=== PATIENT | female | born 1935 | race Caucasian/White ===

== ENCOUNTER → 2016-06-23 | Outpatient (CLI) | payer MEDICARE, OTHER | LOC: GMAL 10:51 | PROVIDERS: ATTEND Family Medicine | DX: D51.3 Other dietary vitamin B12 deficiency anemia (principal); E83.42 Hypomagnesemia; I10 Essential (primary) hypertension ==

== ENCOUNTER → 2016-08-17 | Outpatient (CLI) | payer MEDICARE, OTHER | END | disposition home or self-care (01) | LOC: GMAL 10:29 | PROVIDERS: ATTEND Family Medicine | DX: E83.42 Hypomagnesemia (principal) ==

== ENCOUNTER → 2017-02-04 | Outpatient (CLI) | payer MEDICARE, OTHER ==
--- NOTE | 2017-02-05 13:51 | MAM ---
EXAM DESCRIPTION: 3D Screening BILATERAL CLINICAL HISTORY: 81 yearsFemaleSCREENING. No complaints. No family history of breast cancer. Postmenopausal. HRT five or more years ago. Benign left breast biopsy. COMPARISON: 2-D digital screening bilateral study 10/21/2015. No prior reports available. TECHNIQUE: Bilateral CC and MLO projection full-field images, 3-D tomosynthesis digital mammographic technique. Also bilateral synthesized CC/ MLO full-field images. CAD not utilized. FINDINGS: The breast parenchymal density pattern is: Almost entirely fatty. No skin thickening or nipple retraction bilateral intramammary lymph nodes. Bilateral solitary microcalcifications. Bilateral vascular calcifications. Oval-shaped mass density versus focal asymmetry in the anterior third of the upper outer quadrant of the right breast at the 1130 clock position, within 2 cm of the skin surface. Not well seen on the prior study. Partially well-circumscribed margins. Not associated with calcifications. No focal, stellate mass or density, focal asymmetry , and no suspicious microcalcifications in the left breast. IMPRESSION: BI-RADS CATEGORY: 0 - INCOMPLETE- Need additional imaging evaluation. FOLLOW-UP: Recall for additional imaging: Targeted right breast ultrasound of the region of interest described in the findings.. Written communication explaining the results and follow-up will be mailed to the patient and referring care provider. Electronically signed by: Yovany Delgado MD 02/05/2017 1:50 PM CDT
== END | disposition home or self-care (01) ==
LOC: MAMMO 10:38
PROVIDERS: ATTEND Family Medicine
DX: Z12.31 Encounter for screening mammogram for malignant neoplasm of breast (principal)
CPT/HCPCS: 77063; G0202

== ENCOUNTER → 2017-02-16 | Outpatient (CLI) | payer MEDICARE, OTHER | END | disposition home or self-care (01) | LOC: GMAL 11:21 | PROVIDERS: ATTEND Family Medicine | DX: D51.3 Other dietary vitamin B12 deficiency anemia (principal); E55.9 Vitamin D deficiency, unspecified ==

== ENCOUNTER → 2017-02-17 | Outpatient (CLI) | payer MEDICARE, OTHER ==
--- NOTE | 2017-02-17 17:25 | US ---
EXAM DESCRIPTION: Breast,Right ultrasound. CLINICAL HISTORY: 81 yearsFemaleABNORMAL RIGHT BREAST MAMMO COMPARISON: Digital 3-D tomosynthesis bilateral breasts 02/05/2017. TECHNIQUE: Transcutaneous scanning of the upper outer quadrant of the right breast utilizing two-dimensional and Doppler modes. Scanning performed by the oven unloader only. FINDINGS: At 1100 clock position of the right breast near the skin surface and 5 cm from the nipple, is a oval-shaped solid mass with heterogeneous signal and almost completely well-circumscribed, and minimally indistinct margins. Dimensions are 8.6 x 6.6 mm. Parallel orientation and nonvascular. Attenuating posterior features at the margins in each scan plane. No associated microcalcifications. No other distinct solid masses or cysts. No parenchymal edema or calcifications. IMPRESSION: BI-RADS CATEGORY: 3 PROBABLY BENIGN. Management: Short interval (6-month) follow-up or continued surveillance. Written documentation in regards to the IMPRESSION and follow-up plan will be mailed to the patient and referring health care provider. Electronically signed by: Yovany Delgado MD 02/17/2017 5:24 PM CDT
== END | disposition home or self-care (01) ==
LOC: US 14:40
PROVIDERS: ATTEND Family Medicine
DX: R92.8 Other abnormal and inconclusive findings on diagnostic imaging of breast (principal)

== ENCOUNTER → 2017-08-17 | Outpatient (CLI) | payer MEDICARE, OTHER | LOC: GMAL 12:30 | PROVIDERS: ATTEND Family Medicine | DX: E55.9 Vitamin D deficiency, unspecified (principal) ==

== ENCOUNTER → 2017-09-20 | Outpatient (CLI) | payer MEDICARE, OTHER ==
--- NOTE | 2017-09-21 14:49 | US ---
EXAM DESCRIPTION: Breast,Right: Ultrasound CLINICAL HISTORY: 82 yearsFemale6 MO FU COMPARISON: Digital diagnostic 3-D tomosynthesis bilateral breast on this visit. . Targeted right breast ultrasound 02/17/2017. TECHNIQUE: Transcutaneous scanning of the upper right breast utilizing two-dimensional and Doppler modes. Scanning performed by the manager ambulatory and Dr. Delgado. FINDINGS: Scanning 1100 clock position 5 cm from the nipple. Again noted is a oval-shaped homogeneous hypoechoic mass measuring 8.1 x 6.3 mm just below the skin surface. Parallel orientation with posterior acoustic shadowing as was seen previously. Nonvascular. Closer to the nipple at 2 cm is a anechoic cyst measuring 5.6 mm parallel orientation and posterior acoustic enhancement and nonvascular. No other distinct solid masses or cysts. No parenchymal edema or large calcifications. No skin thickening. No abnormal vascularity of the soft tissues. IMPRESSION: WS BI-RADS 3-probably benign. Please refer to bilateral diagnostic 3-D tomosynthesis mammographic examination and report on this visit. The FINDINGS and the FOLLOW-UP plan were reviewed in person with the patient after the examination. Written communication explaining the IMPRESSION and FOLLOW-UP will be mailed to the patient and referring care provider. Electronically signed by: Yovany Delgado MD 09/21/2017 2:48 PM CDT
--- NOTE | 2017-09-21 14:49 | MAM ---
EXAM DESCRIPTION: 3D Diagnostic, Bilateral: Digital Mammography CLINICAL HISTORY: 82 yearsFemaleABNORMAL MAMMOGRAM follow-up mass right breast.. COMPARISON: prior. No prior reports available. Reports from prior examinations also reviewed. Report from prior examination also reviewed. TECHNIQUE: Right CC LM MLO projection full-field images, 3-D tomosynthesis digital mammographic technique. Also right breast synthesized CC MLO LM full-field images. Left breast LM full-field 3-D Maame synthesis and CC images. CAD not utilized. FINDINGS: The breast parenchymal density pattern is: Almost entirely fatty. No skin thickening or nipple retraction *or calcifications. Scattered solitary microcalcifications and coarse calcifications. Posterior right breast intramammary lymph node. Skin mole abutting the chest wall. No focal, stellate mass or density, focal asymmetry , and no suspicious microcalcifications right breast. ULTRASOUND: Scanning 1100 clock position 5 cm from the nipple. Again noted is a oval-shaped homogeneous hypoechoic mass measuring 8.1 x 6.3 mm just below the skin surface. Parallel orientation with posterior acoustic shadowing as was seen previously. Nonvascular. Closer to the nipple at 2 cm is a anechoic cyst measuring 5.6 mm parallel orientation and posterior acoustic enhancement and nonvascular. No other distinct solid masses or cysts. No parenchymal edema or large calcifications. No skin thickening. No abnormal vascularity of the soft tissues. IMPRESSION: BI-RADS CATEGORY: 3 - PROBABLY BENIGN. Management: Short interval follow-up: right breast ultrasound and bilateral diagnostic digital mammography January 2018. The FINDINGS and the FOLLOW-UP plan were reviewed in person with the patient after the examination. Written communication explaining the IMPRESSION and FOLLOW-UP will be mailed to the patient and referring care provider. Electronically signed by: Yovany Delgado MD 09/21/2017 2:47 PM CDT
== END ==
LOC: MAMMO 12:49
PROVIDERS: ATTEND Obstetrics & Gynecology
DX: R92.8 Other abnormal and inconclusive findings on diagnostic imaging of breast (principal)
CPT/HCPCS: 76641; 77066; G0279

== ENCOUNTER 2018-03-29 17:45 | Inpatient (IN) | payer MEDICARE, OTHER ==
--- NOTE | 2018-03-29 17:47 | HP ---
SUPERVISING PHYSICIAN: Rowdy Batres M.D. CHIEF COMPLAINT: Pneumonia symptoms. HISTORY OF PRESENT ILLNESS: This is an 82 year-old female patient who was seen on the 24 of March by nurse practitioner, Asia Deal, at [facility] for cold symptoms. At that time she had an x-ray done and it showed some basilar atelectasis. She was treated with Depo-Medrol, Rocephin and breathing treatments as well as given some azithromycin. She was also given some Guaifenesin. She returned on March 29 with continuing with the same symptoms. Her repeat x-ray showed abnormal lung bases partially on the left with marked eventration of the left hemidiaphragm with compressive atelectasis and/or mild inflammation at the left lung base. She had a very productive cough with some shortness of breath and wheezing. Asia talked with the patient's primary care physician, Dr. Addison Salgado. They both felt that she should be admitted for left lower lobe pneumonia failed outpatient treatment. She was sent to the hospital as a direct admission. PAST MEDICAL HISTORY: 1. Asthma. 2. Gout. 3. Hypertension. 4. Chronic hypokalemia. 5. Chronic hypomagnesemia. 6. Chronic lymphocytic leukemia. 7. Osteoarthritis. 8. Chronic renal insufficiency with multiple kidney stones. PAST SURGICAL HISTORY: 1. Bladder suspension. 2. Cataract removal. 3. Hysterectomy. 4. Kidney stone removal. 5. Radical hemorrhoidectomy. 6. Biopsy of the left breast. 7. Cornea transplant. OUTPATIENT MEDICATIONS: 1. Dorzolamide/Timolol ophthalmic drops. 2. Fluticasone inhaler. 3. Latanoprost ophthalmic. 4. Metoprolol tartrate. 5. Omeprazole. 6. Pravastatin. 7. Triamterene/Hydrochlorothiazide. ALLERGIES: ALLOPURINOL, CODEINE, COLCHICINE, NORVASC, CELEBREX, COREG, COZAAR, LISINOPRIL, NOVOCAINE. SOCIAL HISTORY: She is . She has 2 children. She denies any tobacco, ETOH or illicit drug use. REVIEW OF SYSTEMS: GENERAL: Positive for fatigue. Negative for chills or fever. HEENT: Negative for ear pain, vision changes, sore throat or sinus symptoms. RESPIRATORY: Positive for coughing, wheezing, shortness of breath. CARDIAC: Negative for chest pain, palpitations or tachycardia. GASTROINTESTINAL: Positive for some mild diarrhea and some nausea. Negative for vomiting, constipation or abdominal pain. MUSCULOSKELETAL: Negative for arthralgias or myalgias. GENITOURINARY: Negative for hematuria, dysuria or polyuria. SKIN: Negative for lesions or rashes. NEUROLOGIC: Negative for headaches, dizziness or seizures. PHYSICAL EXAMINATION: VITAL SIGNS: Temperature: She is afebrile. Heart rate 56, blood pressure 135/ 82, respiratory rate 22, O2 sat 94%. GENERAL: This is an 82 year-old female patient who is sitting on the side of her hospital bed. She appears to be moderately ill. HEENT: Normocephalic and atraumatic. Pupils are equal and reactive. Oropharynx is clear. NECK: Supple without mass. RESPIRATORY: She is slightly tachypneic. She has some diffuse expiratory wheezes throughout, especially over the left and right lower lobes. CARDIOVASCULAR: Regular rate and rhythm. GASTROINTESTINAL: Abdomen is soft, nondistended, non-tender. Bowel sounds are positive. EXTREMITIES: No cyanosis, clubbing or edema. SKIN: Warm and dry. NEUROLOGIC: She is awake, alert and oriented times three. LABORATORY: Labs done at [facility]. WBCs 18,100 with hemoglobin 15.6, hematocrit 44. Lymphocytes 73%, neutrophils 22.6%. Electrolytes are basically within normal limits with the exception of her sodium is slightly low at 133. Liver enzymes are within normal limits. X-rays are as the History of Present Illness. ASSESSMENT: 1. Left lower lobe pneumonia most likely community acquired, failed outpatient therapy. 2. Leukocytosis secondary to #1. Her WBCs are 18,100. 3. Mild hyponatremia. 4. History of chronic lymphocytic leukemia. 5. History of asthma. 6. Hypertension that is stable. 7. History of chronic hypokalemia and hypomagnesemia. 8. Gout. PLAN: We will admit the patient to the hospital. I have initiated the pneumonia guidelines. I have given her Protonix for ulcer prophylaxis and Lovenox for DVT prophylaxis. We will encourage good pulmonary hygiene, especially those from the pneumonia guidelines. Her home medications have been restarted. I have also got blood cultures and sputum culture as well as a urinalysis. I have started her on azithromycin and Rocephin. I have ordered routine lab for in the morning, including magnesium due to her history of electrolyte imbalance. We will continue to monitor the patient closely and follow as needed. [facility][id number] [facility]
[2018-03-29] MEDS ORDERED: ACETAMINOPHEN 325 MG TAB PO PRN (18:32)
[2018-03-29] MEDS ORDERED: SODIUM CHLORIDE 0.9% (FLUSH) 10 ML SYG IV PRN (18:32)
[2018-03-29] MEDS ORDERED: ALBUTEROL SULFATE 2.5 MG/3 ML VIAL NEB PRN (18:32)
[2018-03-29] MEDS ORDERED: ONDANSETRON INJ 4 MG/2 ML VIAL IV PRN (18:32)
[2018-03-29] MEDS ORDERED: KCL 20 MEQ/NS 1,000 ML IVS ONE (18:36)
[2018-03-29] MEDS ORDERED: IV SET AND CAP CHANGE INJ INJ SCH (19:00)
[2018-03-29] MEDS ORDERED: SODIUM CHL 0.9% 50ML MIN-BAG+ 50 ML IVPB ONE (20:10)
[2018-03-29] MEDS ORDERED: cefTRIAXone SODIUM 1 GM VIAL ONE (20:11)
[2018-03-29] MEDS: cefTRIAXone SODIUM 1 GM in SODIUM CHL 0.9% 50ML MIN-BAG+ 50 ML IVPB SCH (20:19)
[2018-03-29] MEDS ORDERED: SODIUM CHLORIDE 0.9% 250ML 250 ML ONE (20:40)
[2018-03-29] MEDS ORDERED: AZITHROMYCIN IV 500 MG VIAL IVPB ONE (20:40)
[2018-03-29] MEDS: ALBUTEROL SULFATE 2.5 MG/3 ML VIAL NEB SCH (20:47)
[2018-03-29] MEDS: AZITHROMYCIN IV 500 MG in SODIUM CHLORIDE 0.9% 250ML 250 ML IVPB SCH (21:25)
[2018-03-29] MEDS: guaiFENesin ER TAB 600 MG TAB PO SCH (21:26)
[2018-03-29] MEDS: ENOXAPARIN SODIUM 40 MG/0.4 ML SYG SUBCU SCH (21:26)
[2018-03-29] MEDS: SODIUM CHLORIDE 0.9% (FLUSH) 10 ML SYG IV SCH (21:27)
[2018-03-30] MEDS: PANTOPRAZOLE SODIUM IV 40 MG VIAL IV SCH (06:04)
--- NOTE | 2018-03-30 07:17 | RAD ---
Examination: XR CHEST 2 VIEWS dated 03/30/2018 7:00 AM CDT History: Pneumonia Comparison: None Technique: 2 views of the chest Findings: Elevated left hemidiaphragm with left lung base opacities. Right lung is clear. No pneumothorax or pleural effusion. Aortic atherosclerosis. Normal cardiac silhouette. Impression: Elevated left hemidiaphragm with left lung base opacities, likely representing atelectasis. Pneumonia is difficult to exclude. Electronically signed by: Bk Aviles MD 03/30/2018 7:15 AM CDT
[2018-03-30] MEDS ORDERED: POTASSIUM CHLORIDE 20 MEQ TAB PO ONE (08:11)
[2018-03-30] MEDS: ALBUTEROL SULFATE 2.5 MG/3 ML VIAL NEB SCH ×4 (08:26→20:05)
[2018-03-30] MEDS ORDERED: OMEPRAZOLE CAP 20 MG CAP PO SCH (09:00)
[2018-03-30] MEDS ORDERED: NON-FORMULARY MEDICATION 1 EA MIS (Omeprazole [Omeprazole] 20 MG) PO SCH (09:00)
[2018-03-30] MEDS ORDERED: NON-FORMULARY MEDICATION 1 EA MIS (Pravastatin Sodium [Pravachol] 40 MG) PO SCH (09:00)
[2018-03-30] MEDS ORDERED: FLUTICASONE PROPIONATE INH SCH ×2 (09:00→10:00)
[2018-03-30] MEDS ORDERED: DORZOLAMIDE TIMOLOL RIGHT_EYE SCH (09:00)
[2018-03-30] MEDS: PRAVASTATIN SODIUM 20 MG TAB PO SCH (09:12)
[2018-03-30] MEDS: guaiFENesin ER TAB 600 MG TAB PO SCH ×2 (09:12→21:06)
[2018-03-30] MEDS: METOPROLOL TARTRATE 50 MG TAB PO SCH (09:13)
[2018-03-30] MEDS: SODIUM CHLORIDE 0.9% (FLUSH) 10 ML SYG IV SCH ×2 (09:13→21:06)
[2018-03-30] MEDS: NON-FORMULARY MEDICATION 1 EA MIS (Triamterene & Hydrochlorothiaz [Triamterene/Hydrochloro PO SCH (10:46)
[2018-03-30] MEDS ORDERED: MAGNESIUM SULFATE PREMIX 4GM 4 GM in PREMIX BAG 1 BAG IVPB ONE (12:34)
[2018-03-30] MEDS ORDERED: MAGNESIUM SULFATE PREMIX 4GM 50 ML IVPB ONE (13:05)
[2018-03-30] MEDS ORDERED: SODIUM CHL 0.9% 50ML MIN-BAG+ 50 ML IVPB ONE (17:08)
[2018-03-30] MEDS ORDERED: cefTRIAXone SODIUM 1 GM VIAL ONE (17:09)
[2018-03-30] MEDS: NON-FORMULARY MEDICATION 1 EA MIS (Latanoprost 0.005% Ophth [Xalatan 0.005% Ophthalmic Dro RIGHT_EYE SCH ×2 (17:43→22:42)
[2018-03-30] MEDS: cefTRIAXone SODIUM 1 GM in SODIUM CHL 0.9% 50ML MIN-BAG+ 50 ML IVPB SCH (17:44)
[2018-03-30] MEDS ORDERED: AZITHROMYCIN IV 500 MG VIAL IVPB ONE (19:42)
[2018-03-30] MEDS ORDERED: SODIUM CHLORIDE 0.9% 250ML 250 ML ONE (19:42)
[2018-03-30] MEDS: AZITHROMYCIN IV 500 MG in SODIUM CHLORIDE 0.9% 250ML 250 ML IVPB SCH (19:53)
[2018-03-30] MEDS: ENOXAPARIN SODIUM 40 MG/0.4 ML SYG SUBCU SCH (21:06)
--- NOTE | 2018-03-30 23:34 | PN ---
DATE: 03/30/18 SUPERVISING PHYSICIAN: Rowdy Batres M.D. SUBJECTIVE: The patient is walking around in her room. She states she feels much better than she did yesterday. She continues to cough quite a bit but she is getting something up. Complains of some mild shortness of breath with exertion but she denies wheezing, chest pain, nausea, vomiting, diarrhea or constipation. OBJECTIVE: VITAL SIGNS: Temperature 97.7, heart rate 69, blood pressure 132/81 , respiratory rate 18, O2 sat 95% on room air. RESPIRATORY: Essentially clear to auscultation bilaterally. She is somewhat diminished at the bases but much improved since yesterday. CARDIAC: Regular rate and rhythm. GASTROINTESTINAL: Abdomen soft, nondistended, non-tender. Bowel sounds are positive. EXTREMITIES: No cyanosis, clubbing or edema. NEUROLOGIC: She is awake, alert and oriented times three. LABORATORY: Her WBCs have normalized to 8.8 with hemoglobin 13.6, hematocrit 40.6, neutrophils 26.9%. Sodium 136, potassium 3.5, chloride 101, carbon dioxide 25, BUN 18, creatinine 0.94, magnesium 1.5. Serum total protein is low at 6.0. Other liver enzymes are within normal limits. Urine is basically negative except there is a trace of urine leukocyte esterase and 5 to 10 urine WBCs. Preliminary blood cultures show negative to date. Sputum culture is pending. Gram stain on sputum is pending. Chest x-ray shows elevated left hemidiaphragms with left lung base opacities likely representing atelectasis. Pneumonia is difficult to exclude. All other labs and films have been reviewed via the EMR. ASSESSMENT: 1. Left lower lobe pneumonia, community acquired, failed outpatient therapy. 2. Leukocytosis secondary to #1. At admission it was 18,100, today it is 8, 800. 3. Mild hyponatremia, now stable. 4. History of chronic lymphocytic leukemia. 5. History of asthma. 6. Hypertension, stable. 7. History of chronic hypokalemia and hypomagnesemia. Potassium today was 3.5 and magnesium was 1.5. 8. Gout. PLAN: We will continue present supportive care. She will continue with her aggressive pulmonary hygiene per the pneumonia guidelines as well as the antibiotics. We will continue to monitor her electrolytes as well as her cultures. I have given her potassium replacement as well as magnesium replacement. I will recheck those in the morning. Will also do a chest x-ray in the morning. Hopefully she can be discharged tomorrow or the next day. We will continue to monitor closely and follow as needed. #[id number] [facility]
[2018-03-31 02:39] VITALS: TEMP 98
[2018-03-31] MEDS: PANTOPRAZOLE SODIUM IV 40 MG VIAL IV SCH (06:04)
--- NOTE | 2018-03-31 07:11 | RAD ---
EXAM DESCRIPTION: Chest,2 Views CLINICAL HISTORY: pna COMPARISON: 03/30/2018. FINDINGS: Two views of the chest are submitted. Cardiac silhouette appears normal. Consolidation is improving at the left lung base. There is again elevation of the left hemidiaphragm. Right lung is clear. : IMPRESSION: Improved left lung consolidation. Electronically signed by: Yovany Jean-Baptiste 03/31/2018 7:10 AM CDT
[2018-03-31] MEDS: ALBUTEROL SULFATE 2.5 MG/3 ML VIAL NEB SCH (07:55)
[2018-03-31 07:57] VITALS: O2SAT 95
[2018-03-31] MEDS ORDERED: FLUTICASONE PROPIONATE INH SCH (08:00)
[2018-03-31] MEDS ORDERED: DORZOLAMIDE 2% OPHTH SOL 1 DROP RIGHT_EYE SCH (09:00)
[2018-03-31] MEDS ORDERED: DORZOLAMIDE 2% RIGHT_EYE SCH (09:00)
[2018-03-31] MEDS: METOPROLOL TARTRATE 50 MG TAB PO SCH (09:30)
[2018-03-31] MEDS: PRAVASTATIN SODIUM 20 MG TAB PO SCH (09:30)
[2018-03-31] MEDS: NON-FORMULARY MEDICATION 1 EA MIS (Triamterene & Hydrochlorothiaz [Triamterene/Hydrochloro PO SCH (09:30)
[2018-03-31] MEDS: guaiFENesin ER TAB 600 MG TAB PO SCH (09:30)
[2018-03-31 09:47] VITALS: BP 131/84
--- NOTE | 2018-03-31 11:19 | DS ---
SUPERVISING PHYSICIAN: Geronimo Batres MD DISCHARGE DIAGNOSIS: 1. Left lower lobe pneumonia, community acquired, failed outpatient therapy. 2. Leukocytosis secondary to #1. At admission it was 18,100, today it is 9, 800. 3. Mild hyponatremia, now stable. 4. History of chronic lymphocytic leukemia. 5. History of asthma. 6. Hypertension, stable. 7. History of chronic hypokalemia and hypomagnesemia. Potassium today is 3.7 and magnesium yesterday was 1.5. She was given supplementation and today it is 1.9. 8. Gout. HISTORY OF PRESENT ILLNESS: This is an 82-year-old female patient who was seen on 03/24/18 by nurse practitioner, Asia Odell, at [facility] for cold symptoms. At that time, she had an x-ray done and it showed some basilar atelectasis. She was treated with Depo-Medrol, Rocephin and breathing treatments as well as given some azithromycin. She was also given some guaifenesin. She returned on 03/29/18 with worsening symptoms. Her repeat x-ray showed abnormal lung bases partially on the left with marked eventration of the left hemidiaphragm with compressive atelectasis and/or mild inflammation at the left lung base. She had a very productive cough with some shortness of breath and wheezing. She was also very weak. Asia talked with the patient's primary care physician, Dr. Addison Salgado. They both felt that she should be admitted with left lower lobe pneumonia failed outpatient treatment. At [facility], her white blood cell count was 18,100. She was mildly hyponatremia. Other than that, her lab was within normal limits. HOSPITAL COURSE: She was placed on the pneumonia guidelines and given aggressive pulmonary hygiene. Her chest x-ray after one day in the hospital showed elevated left hemidiaphragm with left lung base opacities, likely representing atelectasis. Pneumonia is difficult to exclude. Her chest x-ray today showed improved left lung consolidation. She participated with her aggressive pulmonary hygiene. Today, she is stable and will be discharged home in stable condition. DISCHARGE PLAN: The patient will be discharged home in stable condition. She is to increase her activity as tolerated and resume her previous diet as well as her previous medications. She has a followup with Dr. Salgado on 04/05/18 at 10:45 AM. I have also given her three additional doses of azithromycin as well as eight days of cefdinir. She is also to continue with her albuterol breathing treatments 3 to 4 times a day and as needed for coughing, wheezing or shortness of breath. She is also to continue with her guaifenesin 600 mg twice daily. She is to return to the hospital or call Dr. Salgado' office for any problems or complications. DISCHARGE MEDICATIONS: 1. Triamterene/hydrochlorothiazide. 2. Pravastatin. 3. Latanoprost ophthalmic. 4. Dorzolamide/timolol ophthalmic. 5. Omeprazole. 6. Metoprolol. 7. Flovent. 8. Proventil. 9. Azithromycin. 10. Cefdinir. 11. Guaifenesin. [facility][id number] [facility]
== END 2018-03-31 11:00 | disposition home or self-care (01) | DRG 194 ==
LOC: MS 17:45
PROVIDERS: ADMIT Nurse Practitioner Acute Care; ATTEND Nurse Practitioner Acute Care
DX: J18.9 Pneumonia, unspecified organism (principal); E87.1 Hypo-osmolality and hyponatremia; J45.909 Unspecified asthma, uncomplicated; I10 Essential (primary) hypertension; E87.6 Hypokalemia; E83.42 Hypomagnesemia; M10.9 Gout, unspecified; Z85.6 Personal history of leukemia

== ENCOUNTER → 2018-08-17 | Outpatient (CLI) | payer MEDICARE, OTHER | LOC: GMAL 13:07 | PROVIDERS: ATTEND Family Medicine | DX: E83.42 Hypomagnesemia (principal) ==

== ENCOUNTER → 2019-10-09 | Outpatient (CLI) | payer MEDICARE, OTHER | LOC: GMAM 11:21 | PROVIDERS: ATTEND Family Medicine | DX: I48.4 Atypical atrial flutter (principal); R53.83 Other fatigue ==

== ENCOUNTER 2020-01-21 17:35 | Emergency (ER) | payer MEDICARE, OTHER ==
[2020-01-21] MEDS ORDERED: ACETAMINOPHEN IV 1000MG 1,000 MG in PREMIX BOTTLE 1 BOTTLE IVPB ONE (17:48)
[2020-01-21] MEDS ORDERED: GABAPENTIN 100 MG CAP PO ONE (17:49)
[2020-01-21 17:58] VITALS: TEMP 97.5
--- NOTE | 2020-01-21 18:01 | ED.PDOC ---
History of Present Illness - General Chief Complaint: General Stated Complaint: RLE pain (non trauma) Time Seen by Provider: 01/21/20 17:47 - History of Present Illness Initial Comments: Lidia 84 yo F with a PMH of CLL, HTN, afib comes in with sharp right leg pain. Pain started yesterday radiated down her right leg. The pain went away. The pain came back today and is more severe. started when she was walking to the bathroom. Denies numbness. pain worse with movement. no issues with urine or bladder. no numbness, denies acute back pain. Does have chronic back pain. Is on Eliquis. Denies any injuries. States its the entire leg. no recent travel, no hx of blood clots, no recent immobility. Allergies/Adverse Reactions: Allergies Colchicine Allergy (Severe, Verified 03/29/18 20:29) Codeine Allergy (Intermediate, Verified 03/29/18 20:29) Home Medications: Ambulatory Orders Dorzolamide-Timolol Ophth [Cosopt Opthalmic Drops] 1 drop RIGHT_EYE DAILY 12/02/13 Latanoprost 0.005% Ophth [Xalatan 0.005% Ophthalmic Drops] 1 drop RIGHT_EYE QPM 12/02/13 Pravastatin Sodium [Pravachol] 40 mg PO QAM 12/02/13 Triamterene & Hydrochlorothiaz [Triamterene/Hydrochloroth 75-50 mg] 1 tab PO QAM 12/02/13 Fluticasone Propionate Inhaler [Flovent 110 MCG Inhaler] 2 puff INH DAILY 03/29/18 Metoprolol Tartrate 50 mg PO DAILY 03/29/18 Omeprazole 20 mg PO DAILY 03/29/18 Albuterol Sulfate Nebs [Proventil Nebs] 2.5 mg NEB RTQ4 PRN vial 03/31/18 Albuterol Sulfate Nebs [Proventil Nebs] 2.5 mg NEB RTQID vial 03/31/18 Azithromycin Tab [Zithromax] 250 mg PO DAILY #3 tab 03/31/18 Cefdinir 300 mg PO BID #16 capsule 03/31/18 Guaifenesin [Guaifenesin ER] 600 mg PO BID #60 tab 03/31/18 Gabapentin 100 mg PO TID #30 cap 01/21/20 Review of Systems - Review of Systems Constitutional: Denies: diaphoresis, fever, malaise EENTM: Denies: eye pain, ear discharge, mouth pain Respiratory: Denies: cough, orthopnea, short of breath, stridor Cardiology: Denies: chest pain, edema, palpitations, syncope Gastrointestinal/Abdominal: Denies: abdominal pain, constipation, diarrhea, nausea, vomiting Genitourinary: Denies: discharge, dysuria, frequency, hematuria Musculoskeletal: States: see HPI. Denies: back pain, joint pain, joint swelling, muscle stiffness Skin: Denies: dryness, rash Neurological: Denies: headache, numbness, paresthesia, seizure, tingling, tremors, weakness Endocrine: Denies: increased urine, unexplained weight gain, unexplained weight loss Hematologic/Lymphatic: Denies: anemia, blood clots, easy bleeding, easy bruising Past Medical History (General) - Patient Medical History Hx Seizures: No Hx Stroke: No Hx Dementia: No Hx Asthma: Yes Hx of COPD: No Hx Cardiac Disorders: Yes - A fib Hx Congestive Heart Failure: No Hx Pacemaker: No Hx Hypertension: Yes Hx Thyroid Disease: Yes - thyroidectomy Hx Diabetes: No Hx Gastroesophageal Reflux: No Hx Renal Disease: Yes - Stage 3 kidney disease Hx Cancer: Yes - Chronic Lymphocytic Leukemia Hx of HIV: No Hx MRSA: No MRSA Source:: Wound Surgical History: Hysterectomy - Vaccination History Hx Influenza Vaccination: Yes Hx Pneumococcal Vaccination: Yes - Social History Hx Tobacco Use: No Hx Alcohol Use: No Hx Substance Use: No Hx Substance Use Treatment: No Hx Depression: No Hx Physical Abuse: No Hx Emotional Abuse: No - Female History Patient is a Female of Child Bearing Age (10 -59 yrs old): No Patient : No Family Medical History - Family History Mother Family History: Unknown Name: Ritu Mason Living Status: Age at (years of age): 86 Cause of : heart issues (CHF) Hx Family Asthma: No Hx Family Congestive Heart Failure: Yes Hx Family Hypertension: No Hx Family Stroke: No Hx Family Diabetes: No Hx Family Cancer: No Physical Exam - Physical Exam General Appearance: Alert, Comfortable, No apparent distress Eye Exam: bilateral normal Ears, Nose, Throat: hearing grossly normal, normal ENT inspection Neck: non-tender, full range of motion, supple, normal inspection Respiratory: chest non-tender, lungs clear, normal breath sounds, no respiratory distress, no accessory muscle use Cardiovascular/Chest: normal peripheral pulses, no edema, no gallop, no JVD, no murmur, irregularly irregular Peripheral Pulses: radial,right: 2+, radial,left: 2+, dorsalis pedis,right: 2+, dorsalis pedis,left: 2+, posterior tibialis,right: 2+, posterior tibialis,left: 2+ Gastrointestinal/Abdominal: normal bowel sounds, non tender, soft, no organomegaly, no pulsatile mass Rectal Exam: deferred Back Exam: normal inspection, no CVA tenderness, no vertebral tenderness Extremity: normal range of motion, non-tender, normal inspection, no pedal edema, no calf tenderness, normal capillary refill, other - pain on back of right leg with straight leg test, no pain in back 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 On elqius low probability she would get a blood clot will order d-dimer. good pulses and good blood flow through out. D- dimer negative. Patient given 1000 mg IV tylenol and 100 mg gabapentin. wbc consistent with patients CLL, last wbc was 22.[address] l-spine There is fairly marked scoliosis in the lumbar spine convex left. 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 There are degenerative changes throughout the lumbar spine without significant spinal stenosis. There is severe right neural foraminal stenosis at L1-2 and L2-3. There is moderate to severe neural foraminal stenosis on the left at L4-5. There is severe bilateral neural foraminal stenosis at L5-S1. Pain improved. The data reviewed when caring for this patient included: nurse notes, prior records, etc. The history and assessments from nurses notes were reviewed and considered, and the patient's home medication list was also reviewed and considered. My assessment and the results of testing completed here in the ED were discussed with the patient/family. All questions were answered, and they express understanding of my assessment and the plan. They have been instructed to return if their symptoms worsen, and have been asked to follow up with their primary care physician to recheck today's presenting complaint. Strict return precautions given and are not limited to but include problems with urination, bowel, or saddle numbness, worsening pain or as needed. I have reviewed medication, benefits, alternatives and side effects. Patient decided to proceed with medication. Sarahi Riley DO #[id number] Departure - Departure Clinical Impression: Sciatic leg pain Spinal stenosis of lumbar region Qualifiers: Neurogenic claudication status: unspecified Qualified Code(s): M48.061 - Spinal stenosis, lumbar region without neurogenic claudication Time of Disposition: 19:42 Disposition: Discharge to Home or Self Care Departure Forms: ED Discharge - Pt. Copy, Patient Portal Self Enrollment Instructions: Sciatica, Sciatica Exercises, Radiculopathy Referrals: Oracio Jiménez MD [Primary Care Provider] - 1-2 Days Prescriptions: Gabapentin 100 mg PO TID #30 cap Home Medications: Ambulatory Orders Dorzolamide-Timolol Ophth [Cosopt Opthalmic Drops] 1 drop RIGHT_EYE DAILY 12/02/13 Latanoprost 0.005% Ophth [Xalatan 0.005% Ophthalmic Drops] 1 drop RIGHT_EYE QPM 12/02/13 Pravastatin Sodium [Pravachol] 40 mg PO QAM 12/02/13 Triamterene & Hydrochlorothiaz [Triamterene/Hydrochloroth 75-50 mg] 1 tab PO QAM 12/02/13 Fluticasone Propionate Inhaler [Flovent 110 MCG Inhaler] 2 puff INH DAILY 03/29/18 Metoprolol Tartrate 50 mg PO DAILY 03/29/18 Omeprazole 20 mg PO DAILY 03/29/18 Albuterol Sulfate Nebs [Proventil Nebs] 2.5 mg NEB RTQ4 PRN vial 03/31/18 Albuterol Sulfate Nebs [Proventil Nebs] 2.5 mg NEB RTQID vial 03/31/18 Azithromycin Tab [Zithromax] 250 mg PO DAILY #3 tab 03/31/18 Cefdinir 300 mg PO BID #16 capsule 03/31/18 Guaifenesin [Guaifenesin ER] 600 mg PO BID #60 tab 03/31/18 Gabapentin 100 mg PO TID #30 cap 01/21/20
[2020-01-21] MEDS: MAGNESIUM OXIDE 400 MG TAB PO ONE ×2 (18:42→18:47)
--- NOTE | 2020-01-21 19:25 | CT ---
EXAM DESCRIPTION: Lumbar Spine CLINICAL HISTORY: 84 years ,Female pain down right leg COMPARISON: None. TECHNIQUE: Three views of the lumbar spine. FINDINGS: There is fairly marked scoliosis in the lumbar spine convex left. There is disc space narrowing and vacuum disc phenomenon throughout the lumbar spine. There is grade 1 anterolisthesis of L5 on S1. There are bilateral pars defects at L5-S1. No acute fracture is identified. T12-L1: There is a small posterior disc/osteophyte complex and mild degenerative change of the facets. There does not appear to be significant spinal or foraminal stenosis. L1-2: There is a small posterior disc/osteophyte complex and there are degenerative changes of the facets. No significant spinal stenosis. There is severe right neural foraminal stenosis. L2-3: There is a posteriorly projecting disc/osteophyte complex. There are degenerative changes of the facets. No significant spinal stenosis. There is severe right neural foraminal stenosis. L3-4: There is a posteriorly projecting disc/osteophyte complex and degenerative changes of the facets. There does not appear to be significant spinal or foraminal stenosis. L4-5: Minimal disc bulging. Degenerative changes of the facets. No significant spinal stenosis. There is moderate to severe left neural foraminal stenosis. L5-S1: There are bilateral pars defects with grade 1 anterolisthesis. There are degenerative changes of the facets. No significant spinal stenosis. There is severe bilateral neural foraminal stenosis. Atherosclerotic calcifications. Small granuloma in the right lower lung. IMPRESSION: There is fairly marked scoliosis in the lumbar spine convex left. 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 There are degenerative changes throughout the lumbar spine without significant spinal stenosis. There is severe right neural foraminal stenosis at L1-2 and L2-3. There is moderate to severe neural foraminal stenosis on the left at L4-5. There is severe bilateral neural foraminal stenosis at L5-S1. Electronically signed by: Óscar Quiroz MD 01/21/2020 7:24 PM CDT
[2020-01-21 19:52] VITALS: BP 162/71; O2SAT 97
== END 2020-01-21 20:07 | disposition home or self-care (01) ==
LOC: ER 17:35
DX: M54.31 Sciatica, right side (principal); M48.061 Spinal stenosis, lumbar region without neurogenic claudication; M47.817 Spondylosis without myelopathy or radiculopathy, lumbosacral region; M41.9 Scoliosis, unspecified; G89.29 Other chronic pain; I48.91 Unspecified atrial fibrillation; I12.9 Hypertensive chronic kidney disease with stage 1 through stage 4 chronic kidney disease, or unspecified chronic kidney disease; C91.10 Chronic lymphocytic leukemia of B-cell type not having achieved remission; J45.909 Unspecified asthma, uncomplicated; E89.0 Postprocedural hypothyroidism; N18.3 Chronic kidney disease, stage 3 (moderate); Z79.899 Other long term (current) drug therapy; Z79.01 Long term (current) use of anticoagulants; Z88.5 Allergy status to narcotic agent; Z88.8 Allergy status to other drugs, medicaments and biological substances